=== PATIENT | male | born 1950 | race Hispanic/Latino ===

== ENCOUNTER 2017-04-25 10:16 | Outpatient (CLI) | payer MEDICARE, OTHER ==
--- NOTE | 2017-04-25 11:13 | XRay Report ---
RIGHT HIP, 2 views: History: Right hip pain. Findings: No comparisons at this facility. Previous right hip arthroplasty is noted. There is normal articulation at the right hip. No acute fracture is identified. There is however lucency surrounding the acetabular component which measures up to 9 mm in thickness. This may indicate loosening. Infection could be considered but is thought less likely. IMPRESSION: Slightly abnormal appearance of the acetabular component of the right hip prosthesis. Loosening may be present. Please correlate with the patient and the images.
== END 2017-04-25 10:17 | disposition home or self-care (01) ==
LOC: SPVIMAG 10:16
PROVIDERS: ATTEND Orthopaedic Surgery Sports Medicine
DX: M25.551 Pain in right hip (principal); Z96.641 Presence of right artificial hip joint

== ENCOUNTER 2021-04-06 08:39 | Day surgery (SDC) | payer MEDICARE, OTHER ==
--- NOTE | 2021-04-06 08:51 | Short Stay Summary ---
Short Stay Documentation Date of service: 04/06/21 - History Principal diagnosis: Syncope H&P: obtained from office Past Medical History: acute NM, atrial fib, CAD, heart failure, hypertension, hyperlipidemia, hypothyroidism, PVD Past Surgical History: PTCA, Other (L CEA), no CABG Social history: alcohol abuse (occasional), no smoking - Allergies and Medications Current Medications: Allergies penicillin G Adverse Reaction (Verified 03/30/13 09:14) Swelling Lwvfihk-VLL-MmF Reductase Inhibitor [Tmguucv-Sin-Ayb Reductase Inhibitor] Adverse Reaction (Verified 03/30/13 09:14) Swelling ALLERGIC TO ALL STATINS EXCEPT CRESTOR Sulfa (Sulfonamide Antibiotics) Adverse Reaction (Verified 03/30/13 09:13) Rash tetracycline [Tetracycline] Adverse Reaction (Verified 03/30/13 09:14) Swelling Home Medications Medication Instructions Recorded Confirmed Last Taken Type Amiodarone [Cordarone 200 MG TAB] 200 mg PO DAILY 03/30/13 03/30/13 04/07/13 04:15 History 200 Isosorbide Mononitrate [Imdur] 90 mg PO QDAY 03/30/13 03/30/13 04/07/13 04:15 History 90 MG. LORazepam [Ativan] 1 mg PO QHS 03/30/13 03/30/13 04/06/13 History Metoprolol [Lopressor TAB] 25 mg PO DAILY 03/30/13 03/30/13 04/07/13 04:15 History 25 MG. Multivitamin [Multi-Vitamin Daily] 1 each PO DAILY 03/30/13 03/30/13 04/06/13 History Ranolazine [Ranexa] 500 mg PO BID 03/30/13 03/30/13 04/07/13 04:15 History 500 MG. Rosuvastatin Calcium [Crestor] 5 mg PO QHS 03/30/13 03/30/13 04/06/13 20:00 History Zolpidem [Ambien] 5 mg PO QHS PRN 03/30/13 03/30/13 04/06/13 History Aspirin EC [Halfprin EC] 81 mg PO QDAY 04/01/13 04/01/13 04/06/12 History Nitroglycerin [place] [Nitromist] 1 spray TL PRN 04/01/13 04/01/13 Unknown History prednisoLONE ACETATE 1% [Pred 2 drops OP DAILY 04/01/13 04/01/13 04/06/12 History Forte 1%] Hydrocodone Bit/Acetaminophen 1 - 2 each PO Q6H PRN #30 tablet 04/08/13 Unknown Rx [Lortab 10-500 mg] - Physical exam General appearance: no acute distress Integumentary: no rash HEENT: Atraumatic, EOMI, Mucous membr. moist/pink Lungs: Clear to auscultation Heart: Normal S1, Normal S2 Gastrointestinal: normal Extremities: pulses intact, No edema, normal temperature, normal color Neurological: Normal speech, Normal tone, Sensation intact - Brief post op/procedure progress note Date of procedure: 04/06/21 Pre-op diagnosis: Syncope Post-op diagnosis: same Surgeon: BETO CARTER Estimated blood loss: none Pathology: none Condition: stable - Hospital course Hospital course: Pt presented for outpatient tilt table study. Currently stable with no complaints. - Disposition Condition at discharge: Good Disposition: 01 HOME / SELF CARE / HOMELESS - Discharge Diagnoses (1) Syncope Status: Acute Short Stay Discharge Plan Activity: advance as tolerated Diet: low fat, low cholesterol, low salt Additional Instructions: Follow up with Primary Medical Doctor in 1 week, return to Emergency Room for medical emergency. Follow up with: SERENA CABRERA MD [Primary Care Provider] - 7 Days ARASH MIRANDA MD [Staff Physician] - 7 Days Forms: Post Sedation D/C Instructions
[2021-04-06] MEDS ORDERED: SODIUM CHLORIDE 0.9% 500 ML 500 ML IV SCH (10:00)
[2021-04-06] MEDS ORDERED: EPINEPHrine 1 MG/10 ML SYRINGE ONE (11:21)
[2021-04-06] MEDS ORDERED: ATROPINE 0.1% (1 MG/10 ML) CARDIAC SYRINGE ONE (11:21)
[2021-04-06] MEDS ORDERED: NITROGLYCERIN 0.4 MG TAB SUBL SL ONE ×2 (11:21→12:14)
[2021-04-06] MEDS ORDERED: PHENYLEPHRINE/NS 1,000 MCG/10 ML SYRINGE (OR USE) IV ONE (11:22)
[2021-04-06 15:06] VITALS: BP 170/64
--- NOTE | 2021-04-07 07:09 | Tilt Table Report ---
DATE OF SERVICE: 04/06/2021 DATE OF PROCEDURE: 04/06/2021 PROCEDURE PERFORMED: Tilt table test. PREPROCEDURE DIAGNOSIS: Recurrent syncope. POSTPROCEDURE DIAGNOSES: 1. Recurrent syncope. 2. Positive tilt table test for neurocardiogenic syncope. DESCRIPTION OF PROCEDURE: The patient was brought to the label rewinder in a postabsorptive state. He underwent passive head-up tilt table testing with constant electrocardiogram and blood pressure monitoring. The tilt protocol was a baseline tilt followed by sublingual nitroglycerin. The patient was tilted to 80 degrees in the erect position. During the procedure, the patient became unresponsive and was subsequently placed in the supine position. The baseline heart rate was 62 beats per minute and a baseline blood pressure was 162/74 mmHg. Upon initial erect position, the patient's heart rate was 64 beats per minute and the blood pressure was 146/67 mmHg. The patient was erect for 30 minutes without symptoms. He was given 1 sublingual nitroglycerin. His blood pressure decreased to 90/46 mmHg. Two minutes after receiving the sublingual nitroglycerin, the patient became unresponsive and his blood pressure was not detectable. He was placed in the supine position. When his blood pressure was undetectable, his heart rate remained in the 60s throughout. Immediately after being placed in the supine position, the patient became alert and responsive. His blood pressure systolic was greater than 100 mmHg. COMPLICATIONS: None. ASSESSMENT: Positive tilt table test consistent with neurocardiogenic syncope. 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 TID: [id number] RECEIPT: [id number] MMW/RIS
== END 2021-04-06 08:40 | disposition home or self-care (01) ==
LOC: CATHLABREC 08:39
PROVIDERS: ATTEND Internal Medicine Cardiovascular Disease
DX: R55 Syncope and collapse (principal); Z87.891 Personal history of nicotine dependence; Z79.82 Long term (current) use of aspirin; Z79.899 Other long term (current) drug therapy; Z88.1 Allergy status to other antibiotic agents; Z88.0 Allergy status to penicillin; Z88.8 Allergy status to other drugs, medicaments and biological substances; Z98.890 Other specified postprocedural states
CPT/HCPCS: 93660; J7040; J0171; J0461; J2370